=== PATIENT | female | born 1985 | race Caucasian/White ===

== ENCOUNTER 2016-12-04 05:44 | Day surgery (SDC) | payer MEDICAID ==
[2016-12-04] VITALS (9 sets, daily range): BP systolic 103–120; BP diastolic 51–71; PULSE 54–68; RESP 12–19
[~2016-12-04 05:44] MED LIST: PRENAT PO
--- NOTE | 2016-12-04 06:51 | PREOPHP ---
DATE OF ADMISSION: 12/04/2016 PROCEDURE: Pelviscopic tubal ligation. HISTORY OF PRESENT ILLNESS: This is a 27-year-old female, 4, para 3 with a recent vaginal d elivery. This patient has requested permanent sterilization, and she had her last vaginal delivery in October 2016. She had 2 previous vaginal deliveries, and at this time, she is requesting perman ent sterilization for multiparity. PAST MEDICAL HISTORY: Unremarkable otherwise. No medical or surgical antecedents. ALLERGIES: NO ALLERGIES. FAMILY HISTORY: Also noncontributory. PHYSICAL EXAMINATION: VITAL SIGNS: Stable. The patient weighs 150, her blood pressure is 120/80, pulse is 80, respiratio ns 16. HEAD AND NECK: Normal. CHEST: Clear. HEART: Normal sinus rhythm. LUNGS: Clear. BREASTS: Soft, nontender, no masses. ABDOMEN: Soft, nontender, no masses. PELVIC: With normal external genitalia. Uterus and adnexa are involuted. EXTREMITIES: Normal with normal pulses and no edema. DIAGNOSES: Multiparity. PLAN: She is undergoing a pelviscopic bilateral salpingectomy. She has been advised of the possibl e risks and possible complications of the procedure with her alternatives and options written inform ation provided. She had no more questions and agreed to go ahead with the procedure with full under standing and no more questions. Dictated By: NICK FERNANDEZ/NTS Conf#: [id number] DID#: [id number]
[2016-12-04] MEDS ORDERED: BUPIVACAINE 0.25%/EPI (SDV) 30 ML INJ ONE (07:20)
[2016-12-04] MEDS ORDERED: FENTAnyl 50 MCG/ML VIAL ONE (07:22)
[2016-12-04] MEDS ORDERED: LIDOCAINE 2% (SDV) 5 ML INJ ONE (07:22)
[2016-12-04] MEDS ORDERED: PROPOFOL 20 ML ONE (07:22)
[2016-12-04] MEDS ORDERED: MIDAZOLAM 1 MG/ML 2 ML INJ ONE (07:23)
[2016-12-04] MEDS ORDERED: ROCURONIUM 50 MG INJ ONE (07:46)
[2016-12-04] MEDS ORDERED: DEXAMETHASONE 4 MG/ML 1 ML INJ ONE (07:56)
[2016-12-04] MEDS ORDERED: CEFAZOLIN 1 GM INJ ONE (07:56)
[2016-12-04] MEDS ORDERED: ONDANSETRON 4 MG INJ ONE (07:56)
[2016-12-04] MEDS ORDERED: ACETAMINOPHEN 1000MG/100ML IV 100 ML ONE (08:19)
[2016-12-04] MEDS ORDERED: METOCLOPRAMIDE 10 MG INJ IV PRN (08:30)
[2016-12-04] MEDS ORDERED: KETOROLAC 30 MG INJ IV ONE (08:30)
[2016-12-04] MEDS ORDERED: MEPERIDINE 25 MG INJ IV PRN (08:30)
[2016-12-04] MEDS ORDERED: PROCHLORPERAZINE 10 MG INJ IV PRN (08:30)
[2016-12-04] MEDS ORDERED: FENTAnyl 50 MCG/ML VIAL IV PRN (08:30)
[2016-12-04] MEDS ORDERED: HYDROmorphONE (0.2 MG/ML) 10ML SYG IV PRN ×2 (08:30)
[2016-12-04] MEDS ORDERED: ONDANSETRON 4 MG INJ IV PRN (08:30)
[2016-12-04] MEDS ORDERED: DIPHENHYDRAMINE 50 MG INJ IV PRN (08:30)
[2016-12-04] MEDS ORDERED: GLYCOPYRROLATE 0.4 MG INJ ONE (08:54)
[2016-12-04] MEDS ORDERED: NEOSTIGMINE 3 MG/3 ML SYRINGE ONE (08:54)
[2016-12-04] MEDS ORDERED: oxyCODONE 5 MG TAB PO PRN (09:00)
--- NOTE | 2016-12-04 09:29 | PD.PPDC ---
[facility] Discharge Instruction Condition Patient Condition: Good Diet Diet: Resume Regular Diet Activity/Restrictions Activity: Normal Activity May Shower Restrictions: No Exercising No Lifting No Driving No Sexual Activity Nothing in the Vagina No [place] No Tampons, douche Wound/Drain Care Instructions Wound/Drain Care Instructions: Remove Steri Strips in 1 week Wash with soap and water Keep clean and dry Follow-up Follow-up with Physician: 1 Return to clinic for MANAGER SKILLED Instructions: Fever greater than 101 Chills Worsening abdominal pain Excessive Vaginal Bleeding More than 2 pads per hour Unable to tolerate diet Surgical Instructions: Incisional Drainage Incisional Redness NICK CASAS MD Dec 04, 2016 09:28
--- NOTE | 2016-12-04 09:33 | OPPN ---
Date/Time of Note Date/Time of Note DATE: 12/04/16 TIME: 09:29 Operative/Procedure Note pelviscopy bilateral incision and fulguration of the tubes . biopsy of peritoneal cyst Pre-Operative Diagnosis multiparity Post-Operative Diagnosis same Surgeon: NICK CASAS MD Anesthesiologist: JOSUÉ CHANEY MD Estimated blood loss: minimal Specimens biopsy of peritoneal cyst Complications: None Anesthesia type: general NICK CASAS MD Dec 04, 2016 09:32
--- NOTE | 2016-12-04 10:39 | OPR ---
DATE OF OPERATION: 12/04/2016 PROCEDURE: Pelviscopy bilateral incision and fulguration of the tubes, biopsy of peritoneal cyst. PREOPERATIVE DIAGNOSIS: Multiparity. POSTOPERATIVE DIAGNOSIS: Multiparity. SURGEON: Nick Anguiano MD ANESTHESIOLOGIST: Dr. Woods. BLOOD LOSS: None. COMPLICATIONS: None. DESCRIPTION OF PROCEDURE: The patient was given general anesthesia, placed in the lithotomy positio n. The abdomen, perineal and vaginal area were prepped and draped. A Chong catheter was placed in the bladder and a uterine elevator was placed in the uterus. The small incision was made over the i nferior edge of the umbilicus and about 2 cm in diameter. The fascia was incised and 2 sutures with an 0 Vicryl were placed on either side of the fascia, the peritoneum was entered bluntly and the Khan sson was placed in and the scope 10 mm scope was placed in as well. A second trocar and cannula was placed suprapubically over the midline. Visualization of the pelvic organs revealed that the uteru s was retroverted, slightly boggy. Both tubes and ovaries were normal. The right tube was held at the isthmic portion and the gyrus with bipolar current was used to burn the whole segment of the mid dle part of the tube towards the fimbriated end. The middle of the tube was incised and the distal part of the tube was pulled away. The proximal part and distal part of the tube were burned again o f about 3 cm in length. The same thing was done on the left side. On the left side the incision wa s made at the cornual end of the tube and the rest of the tube was short and also fulgurated almost up to the fimbriated end. There was a peritoneal cyst that was on top of the uterus and this was re moved, burned, cauterized and a biopsy was done. The rest of the abdomen was normal. The aspiratio n of the contents of the cul-de-sac was done and the gas was reinflated, all the instruments were re moved and the fascia was closed with 0 Vicryl and 3-0 Monocryl subcuticular to both incisions. Ten michelle solution was injected in both areas. The patient tolerated the procedure well and left the OR awake and stable. Sponge counts, instrument counts were correct. Intravenous antibiotics were give n for prophylaxis. Blood loss was minimal and the urine was clear at the end of the procedure. Dictated By: NICK FERNANDEZ/ELDON Conf#: [id number] DID#: [id number]
== END 2016-12-04 10:55 | disposition home or self-care (01) ==
LOC: SDS 05:44
PROVIDERS: ATTEND Obstetrics & Gynecology
DX: Z30.2 Encounter for sterilization (principal)
CPT/HCPCS: 58670; 84703; J0131; J0690; J1100; J1885; J2175; J2250; J2405; J2710; J3010; Z7512; Z7610